=== PATIENT | female | born 1975 | race Caucasian/White ===

== ENCOUNTER 2017-06-04 18:06 | Emergency (ER) | payer OTHER | END 2017-06-04 22:27 | disposition home or self-care (01) | LOC: ER1 18:06 | DX: Y04.0XXA Assault by unarmed brawl or fight, initial encounter (principal); S60.222A Contusion of left hand, initial encounter; S60.221A Contusion of right hand, initial encounter; S09.90XA Unspecified injury of head, initial encounter; F17.200 Nicotine dependence, unspecified, uncomplicated | CPT/HCPCS: 70450; 70486; 73130; 99283 ==

== ENCOUNTER 2021-10-07 21:46 | Emergency (ER) | payer OTHER ==
[~2021-10-07 21:46] MED LIST: BACTRIM DS TAB1 EACH PO; BENTYL 20MG TAB20 MG PO; ZOFRAN ODT 4 MG4 MG SL
== END 2021-10-07 23:05 | disposition left against medical advice (07) ==
LOC: ER1 21:46
DX: R51.9 Headache, unspecified (principal); F17.200 Nicotine dependence, unspecified, uncomplicated; Z88.0 Allergy status to penicillin
CPT/HCPCS: 99282